=== PATIENT | male | born 1960 | race Caucasian/White ===

== ENCOUNTER → 2021-03-07 08:32 | Outpatient (CLI) | payer OTHER, SELFPAY ==
[2019-08-16 11:37] VITALS: BMI 24.3
[2021-03-07 10:00] LABS: Absolute Lymphocyte Count 1.63 X10^3/uL (0.83-4.51); Absolute Neutrophil Count 2.9 X10^3/uL (2.0-7.7); Basophil# 0.04 X10^3/uL; Basophil% 0.8 % (0-1); Eosinophil# 0.21 X10^3/uL; Hemoglobin 14.7 g/dL (13.0-16.5); Lymphocyte # 1.63 X10^3/ul (0.83-4.51); Lymphocyte % 30.8 % (19-41); Mean Corp Hgb Conc 33.4 g/dL (32-36); Mean Corpuscular Hgb 29.3 pg (27.0-32.0); Mean Corpuscular Volume 87.8 fL (80-94); Monocyte# 0.49 X10^3/uL; Monocyte% 9.3 % (0-10); NRBC Flagged by Analyzer 0 % (0-5); Neutrophil # 2.91 X10^3/uL (2.7-7.7); Neutrophil % 54.9 % (47-70); Platelet Count 251 K/mm3 (150-450); RBC Distribution Width CV 12.4 % (11.6-14.6); RBC Distribution Width SD 39.8 fl (35.1-43.9); Red Blood Count 5.01 M/mm3 (4.6-6.2); White Blood Count 5.3 K/mm3 (4.4-11.0)
[2021-03-07 10:33] LABS: Vitamin D,25 Hydroxy 31.2 ng/mL
[2021-03-07 10:46] LABS: Anion Gap 4 (5-15); BUN 25 mg/dL (7-18); BUN/Creat Ratio 27.4 RATIO (10-20); Calcium,Total 9.5 mg/dL (8.5-10.1); Chloride 107 mmol/L (98-107); Cholesterol 172 mg/dL (200); Creatinine, Serum 0.91 mg/dL (0.70-1.30); EST Glomerular Filtration Rate 89 mL/min (>60); Est Glom Filt Rate - Afr Amer 108 mL/min (>60); Glucose 105 mg/dL (74-106); High Density Lipoprotein 52 mg/dL; PSA,Total - Annual Screen 1.15 ng/mL (0.00-4.00); Potassium 4.2 mmol/L (3.5-5.1); Sodium Level 139 mmol/L (136-145); Triglycerides 80 mg/dL; Very Low Density Lipoprotein 16 mg/dL (5-40)
== END ==
PROVIDERS: PCP Family Medicine; Referring Provider Family Medicine; Visit Provider Family Medicine
DX: Z00.00 Encounter for general adult medical examination without abnormal findings (principal); R20.2 Paresthesia of skin
CPT/HCPCS: 36415; 80048; 80061; 82306; 84153; 84403; 84443; 85025; G0103

== ENCOUNTER 2021-04-17 07:30 | Day surgery (SDC) | payer OTHER, SELFPAY ==
[2019-08-16 11:37] VITALS: BMI 24.3
[2021-04-17] VITALS (7 sets, daily range): BP systolic 103–133; BP diastolic 72–95; PULSE 69–89; RESP 12–16; TEMP 36–36.6; O2SAT 95–97; BMI 23.7
[2021-04-17] MEDS: Lactated Ringers 1,000 ML 100 ML IV (07:50)
--- NOTE | 2021-04-17 08:10 | HP.PCM_ITS ---
HPI - General HPI Narrative NATALIE PARHAM, is a 60 M who presents for screening colonoscopy. The patient has no abdominal pain. He is never had a colonoscopy in the past. He denies any blood in his stool or family history of colon cancer. PFSH Medical History Hair transplant History of stress test Non-smoker Home Medications NK 04/12/21 [History Last Taken Unknown] Allergy/AdvReac Type Severity Reaction Status Date / Time No Known Allergies Allergy Unverified 04/17/21 08:01 Social History (Updated 08/16/19 @ 11:37 by Da RAHMAN, PA) Smoking Status: Never smoker alcohol intake: never Past Medical/Surgical History Planned Operation Planned Operative Procedure/s: cscope open access Previous Hospitalizations/Surgeries HX Hospitalizations: No Any Problems With Anesthesia: No You/Your Family Experience Fever (Hyperthermia) With Anes: No Cholinesterase deficiency: No Cardiovascular Hx Hypertension: No Respiratory Hx Sleep Apnea: No Hx Respiratory Tract Infection/Cold (presently): No Do You Snore Loudly (louder than talking or can be heard): No Do You Often Feel Tired/ Fatigued/ Sleepy Dring Daytime?: No Has Anyone Observed You Stop Breathing During Sleep?: No Result (for STOP score): Negative Smoking Status: Never smoker Neurological Does patient have nerve stimulator: No Reproduction : No Miscellaneous Recent Exposure to Contagious Disease: No Allergies No Known Allergies Allergy (Unverified 04/17/21 08:01) Discharge Is Pt Admitted From a Longterm, or a [place] [facility]: No After D/C, Where Do you Plan to Go: Return Home Vital Signs Vital Signs Vital Signs: 04/17/21 08:02 Temperature 97.9 F Temperature Source Temporal Pulse Rate 89 Respiratory Rate 16 Respiratory Pattern Normal Blood Pressure 133/95 H Blood Pressure Mean 107 Blood Pressure Source Monitor Blood Pressure Position Semi-Fowlers Blood Pressure Location Right Arm Pulse Ox 95 Oxygen Delivery Method Room Air Weight Weight: 151 lb 10.848 oz Body Mass Index (BMI) 23.7 Physical Exam Const alert and oriented x3 Resp normal respiratory effort and normal air movement Cardio regular rate and regular rhythm GI soft to palpation, non-tender and non-distended Assessment & Plan Assessment/Plan (1) Screen for colon cancer: PLAN: Patient here for screening colonoscopy. He has no history of colonoscopy in the past. I explained endoscopy in detail to the patient. I explained the risks including but not limited to stroke or heart attack with anesthesia, perforation of the GI tract, bleeding, infection. I explained that any of these could necessitate further emergency surgery. The patient understands and all questions were answered sufficiently. The patient wishes to proceed with procedure. Michael Dumont MD Pager: [facility] [address] [place] [address] [address] [place] [address] Office: Surgery Risks - Colonoscopy Risks Include but are not Limited To: Risks include but are not limited to: Bleeding, perforation requiring further surgery, inability to complete colonoscopy requiring barium enema.
--- NOTE | 2021-04-17 08:45 | OP.COLON_ITS ---
Patient Name: Vito Moses Procedure Date: 04/17/2021 8:17 AM Date of : 1960 Age: 60 Procedure: Colonoscopy Indications: Screening for colorectal malignant neoplasm Providers: Michael Dumont MD Medicines: Monitored Anesthesia Care Patient Profile: This is a 60 year old male. Refer to note in patient chart for documentation of history and physical. Last Colonoscopy: none. The patient's first colonoscopy is today. Complications: No immediate complications. Procedure: Pre-Anesthesia Assessment: - Prior to the procedure, a History and Physical was performed, and patient medications and allergies were reviewed. The patient's tolerance of previous anesthesia was also reviewed. The risks and benefits of the procedure and the sedation options and risks were discussed with the patient. All questions were answered, and informed consent was obtained. Prior Anticoagulants: The patient has taken no previous anticoagulant or antiplatelet agents. After reviewing the risks and benefits, the patient was deemed in satisfactory condition to undergo the procedure. After I obtained informed consent, the scope was passed under direct vision. Throughout the procedure, the patient's blood pressure, pulse, and oxygen saturations were monitored continuously. The pediatric colonoscope was introduced through the anus and advanced to the cecum, identified by appendiceal orifice and ileocecal valve. The colonoscopy was performed without difficulty. The patient tolerated the procedure well. The quality of the bowel preparation was good. Scope In: 8:24:29 AM Scope Withdrawal Time 0 hours 6 minutes 0 seconds Scope Out: 8:39:22 AM Total Procedure Duration Time 0 hours 14 minutes 53 seconds Findings: The entire examined colon appeared normal on direct and retroflexion views. Impression: - The entire examined colon is normal on direct and retroflexion views. - No specimens collected. Recommendation: - Discharge patient to home. - Resume previous diet. - Continue present medications. - Repeat colonoscopy in 10 years for screening purposes. Procedure Code(s): --- Professional --- 79290, Colonoscopy, flexible; diagnostic, including collection of specimen(s) by brushing or washing, when performed (separate procedure) Diagnosis Code(s): --- Professional --- Z12.11, Encounter for screening for malignant neoplasm of colon CPT copyright 2017 [employer]. All rights reserved. The codes documented in this report are preliminary and upon manager distribution review may be revised to meet current compliance requirements. Michael Dumont MD 04/17/2021 8:45:37 AM This report has been signed electronically. Number of Addenda: 0 Note Initiated On: 04/17/2021 8:17 AM
--- NOTE | 2021-04-17 08:47 | OP.CCLET_ITS ---
04/17/2021 Luis Yanez MD [address] [id number] Re : Colonoscopy procedure for Vito Moses Dear Dr. Yanez This procedure was performed on Saturday, April 17, 2021. My impressions and recommendations are as follows: Impressions : - The entire examined colon is normal on direct and retroflexion views. - No specimens collected. Recommendations : - Discharge patient to home. - Resume previous diet. - Continue present medications. - Repeat colonoscopy in 10 years for screening purposes. My findings are described in the full procedure note, which is enclosed. If I can be of further assistance, please feel free to contact me at Doctor phone number(s): , Work: . Sincerely, Michael Dumont MD 04/17/2021 8:45:37 AM This report has been signed electronically.
== END 2021-04-17 09:21 ==
LOC: EN 07:38 → AC 07:39
PROVIDERS: PCP Family Medicine; Referring Provider Family Medicine; Visit Provider Surgery
PROC: 0DJD8ZZ Inspection of Lower Intestinal Tract, Via Natural or Artificial Opening Endoscopic (ICD-10-PCS; CPT 45378; principal; 2021-04-17 08:25)
DX: Z12.11 Encounter for screening for malignant neoplasm of colon (principal)
CPT/HCPCS: 45378; J7120; J2405

== ENCOUNTER 2023-01-27 10:51 | Day surgery (SDC) | payer OTHER, SELFPAY ==
[2023-01-27] VITALS (8 sets, daily range): BP systolic 107–130; BP diastolic 61–92; PULSE 68–85; RESP 16; TEMP 36.3–36.9; O2SAT 92–99; BMI 25.2
[2023-01-27] MEDS: Lactated Ringers 1,000 ML 15 ML IV ×2 (11:33→15:31)
[2023-01-27] MEDS: Cefazolin 2 GM in 0.9% Normal Saline 100 ML IV (13:09)
[2023-01-27] MEDS: Cefazolin 1 GM/50 ML BAG IV (14:17)
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
== END 2023-01-27 16:57 | disposition home or self-care (01) ==
LOC: SDC 10:53 → AC 10:54
PROVIDERS: PCP Family Medicine; Referring Provider Orthopaedic Surgery; Visit Provider Orthopaedic Surgery
PROC: (CPT 27650; principal; 2023-01-27 12:50)
DX: S86.012A Strain of left Achilles tendon, initial encounter (principal); S90.02XA Contusion of left ankle, initial encounter; V28.29XA Unspecified rider of other motorcycle injured in noncollision transport accident in nontraffic accident, initial encounter; Y93.55 Activity, bike riding; Y99.8 Other external cause status; Y92.828 Other wilderness area as the place of occurrence of the external cause; M76.62 Achilles tendinitis, left leg; Z86.16 Personal history of COVID-19
CPT/HCPCS: 27650; 01472; 64445; J7120; A4216; J2405

== ENCOUNTER 2023-03-30 04:00 | Emergency (ER) | payer OTHER, SELFPAY ==
[2023-03-30 04:01] VITALS: BP 161/104; PULSE 115; RESP 23; TEMP 36.8; O2SAT 98; BMI 23.3
--- NOTE | 2023-03-30 04:19 | EDS_ITS ---
HPI History of Present Illness Chief Complaint: Allergic Reaction Informant: patient Narrative Narrative: Patient states that he has had itching of his hands and feet. He has some hives on the abdomen. He feels that his tongue is a little bit full. He is not alvarez ving trouble breathing. He did go out to dinner tonight. He also had taken some Advil as he had had some dental work recently and his tooth was just mildly sore. He does not know if he has ever had Advil before. He has not taken anything yet for the reaction. He does not have high blood pressure and is not on an SUDARSHAN inhibitor. [facility] Medical History Alcohol use Arthritis Cardiology follow-up encounter Hair transplant History of edema History of stress test Non-smoker Wears glasses Home Medications famotidine 20 mg tablet (Pepcid) 20 mg PO BID #10 tabs 03/30/23 [Rx Last Taken Unknown] prednisone 20 mg tablet 60 mg PO DAILY #15 TABLETS 03/30/23 [Rx Last Taken Unknown] Allergy/AdvReac Type Severity Reaction Status Date / Time No Known Allergies Allergy Verified 03/30/23 04:03 Surgical History Hx of colonoscopy Social History Smoking Status: Never smoker alcohol intake: never ROS ROS ED Constitutional Constitutional ED: Denies chills, fever(s) or sweats Eyes Eyes: Denies change in vision ENT ENT ED: Reports other Details: See history of present illness. No trouble swallowing or handling secretions. ; Denies ear pain, rhinorrhea or sore throat Cardiovascular Cardiovascular: Denies chest pain or palpitations Respiratory/Chest Respiratory/Chest: Denies cough or dyspnea Gastrointestinal Gastrointestinal: Denies diarrhea, nausea or vomiting Musculoskeletal Musculoskeletal: Denies arthralgias or myalgias Integumentary Reports rash Neurologic Neurologic: Denies headache(s) Psychiatric Psychiatric: Denies anxiety Endocrine Endocrinology: Denies polydipsia or polyuria Hematologic/Lymphatic Hematologic/Lymphatic: Denies easy bleeding, easy bruising or lymphadenopathy Allergic/Immunologic Allergic/Immunologic ED: Reports tongue swelling and urticaria; Denies mouth swelling EXAM Physical Exam Narrative Exam Narrative: CONSTITUTIONAL: Patient is nontoxic in appearance. The patient looks comfortable. Work of breathing looks normal. HEENT: No notable trauma. Mucous membranes moist. He he does have just some some mild fullness of his tongue. No obvious signs of angioedema though. His voice and secretion handling is normal. I see no dental abscess. No sinus tenderness. No indication of pain with swallowing. EYES: No conjunctival injection. No proptosis. NECK:No JVD. No stridor is heard. CARDIOVASCULAR: Regular rate. Regular rhythm. No notable murmur. No JVD. RESPIRATORY: No respiratory distress. Breathing is unlabored. No wheezes. No rhonchi. No rales. No pain with a deep breath. No chest wall tenderness. GASTROINTESTINAL: Not distended. Bowel sounds are normal. No tenderness. No guarding. No rebound. No palpable mass. No bruit is heard. He does have some hives on the lower abdomen more on the right. GENITOURINARY: No tenderness over the bladder. No CVA tenderness. MUSCULOSKELETAL: Atraumatic. No peripheral edema. No cord. No tenderness along the deep venous system. No asymmetry. No distended veins. NEUROLOGICAL: Patient is alert and appropriate. No focal deficit noted. SKIN: Patient does have some hives on his lower abdomen. None on the palms. He states he had some redness of the hands and palms before but that seems to be actually improved. PSYCHIATRIC: Patient is calm. Mood is appropriate. Const Vital Signs: 03/30/23 04:01 03/30/23 05:00 Temperature 98.3 F Temperature Source Oral Pulse Rate 115 H 98 Respiratory Rate 23 H 19 H Blood Pressure 161/104 H 152/90 H Blood Pressure Mean 123 110 Pulse Ox 98 98 Oxygen Delivery Method Room Air [facility] Narrative Medical decision making narrative: 05:00 patient is rechecked. The hives are gone. There is no itching in his hands or feet. He feels as though the tongue is improved. He can still sense a little bit of swelling. But it is much better. Patient will be rechecked again. As long as he continues to improve I think we can get him home on medications. We did discuss reasons to return. He should avoid Motrin or Aleve at this time as it could have been this medicine that prompted the occurrence and reaction. 05:40 patient is doing progressively better. Tongue looks and feels better. He is comfortable and would like to go home at this time. We will get him on Pepcid and prednisone for the next approximately 5 days. He is encouraged to take Claritin also. He certainly can substitute Benadryl but needs to take that more frequently and it is more likely sedating. We discussed that if he has any worsening or swelling of the tongue was trouble breathing he needs to return. He should not take Advil as this seems to be the most likely compound to initiate this. He does not think he has ever had it before. Discharge Plan Triage Chief Complaint: Allergic Reaction ED Provider: Marino Farias Dx/Rx/DC Orders Clinical Impression: Allergy to nonsteroidal anti-inflammatory drug (NSAID), Hives, Mild tongue swelling Instructions: ED ADVERSE DRUG REACTION Allergic, ED Hives (Adult) Prescriptions: New prednisone 20 mg tablet 60 mg PO DAILY Qty: 15 0RF famotidine [Pepcid] 20 mg tablet 20 mg PO BID Qty: 10 0RF Primary Care Provider: Luis Yanez Referrals: Luis Yanez MD [Primary Care Provider] - 3-5 Days if not improving Activity Restrictions/Additional Instructions: Take 1 Claritin daily for the next 5 days. Disposition Disposition: Home, Self Care
[2023-03-30] MEDS: 0.9% Normal Saline 1,000 ML 999 ML IV (04:32)
[2023-03-30] MEDS: Famotidine 200 MG/20 ML MDV 20 MG in 0.9% Normal Saline (Pres. free 8 ML 300 MG IV (04:33)
[2023-03-30] MEDS: DiphenhydrAMINE 50 MG/ML Syringe IV (04:33)
[2023-03-30] MEDS: MethylPREDNISolone 125 MG/2 ML Vial IV (04:33)
[2023-03-30 05:00] VITALS: BP 152/90; PULSE 98; RESP 19; O2SAT 98
[2023-03-30 05:48] VITALS: BP 150/90; PULSE 89; RESP 18; O2SAT 99
== END 2023-03-30 05:49 | disposition home or self-care (01) ==
PROVIDERS: Emergency Provider Emergency Medicine; PCP Family Medicine; Visit Provider Emergency Medicine
DX: R21 Rash and other nonspecific skin eruption (principal); T39.395A Adverse effect of other nonsteroidal anti-inflammatory drugs [NSAID], initial encounter
CPT/HCPCS: 96374; 96375; 99284; J7030; J3490

== ENCOUNTER → 2023-09-03 | Outpatient (CLI) | payer MEDICARE, OTHER, SELFPAY ==
--- NOTE | 2023-09-03 07:50 | CT_ITS ---
STUDY: CT MAXILLOFACIAL SINUSES REASON FOR EXAM: Male, 63 years old. CHRONIC SINUSITIS RADIATION DOSAGE (If Supplied By Facility): CTDIvol = ( 33.06 ) mGy, DLP = ( 788.40 ) mGycm TECHNIQUE: The patient was scanned in a multi detector CT scanner. High resolution axial imaging was performed without the administration of intravenous contrast material. Sagittal and coronal images were reconstructed. Individualized dose optimization techniques were used for this CT. COMPARISON: None. FINDINGS: FRONTAL SINUSES: Normal aeration, without mucosal inflammatory disease. ETHMOIDAL SINUSES: Normal aeration, without mucosal inflammatory disease. MAXILLARY SINUSES: Left maxillary sinus is opacified with fluid density. The ostiomeatal unit appears opacified as well. SPHENOIDAL SINUSES: Normal aeration, without mucosal inflammatory disease. There is patency of the bilateral maxillary infundibuli with normal uncinate processes, ethmoid bullae, and hiatus semilunaris. Normal bilateral middle turbinates. Normal bilateral inferior turbinates. Normal midline nasal septum. There is patency of the bilateral nasal airways. The visualized osseous structures are normal. The visualized bilateral orbital contents are normal. CT/Sinus/Facial Bone IMPRESSION: Left maxillary sinusitis with involvement of the ostiomeatal unit Electronically Signed: Moustapha Jose MD at 20:33 EST ,
== END | disposition home or self-care (01) ==
LOC: CT 07:47
PROVIDERS: PCP Family Medicine; Referring Provider Otolaryngology Otolaryngology/Facial Plastic Surgery; Visit Provider Otolaryngology Otolaryngology/Facial Plastic Surgery
DX: J32.8 Other chronic sinusitis (principal)
CPT/HCPCS: 70486

== ENCOUNTER → 2023-09-24 | Outpatient (CLI) | payer MEDICARE, OTHER, SELFPAY | END | disposition home or self-care (01) | LOC: LABSPEC 15:55 | PROVIDERS: PCP Family Medicine; Referring Provider Otolaryngology; Visit Provider Otolaryngology | DX: J32.9 Chronic sinusitis, unspecified (principal) | CPT/HCPCS: 87070; 87186; 87205 ==

== ENCOUNTER → 2023-10-22 | Outpatient (CLI) | payer MEDICARE, OTHER, SELFPAY ==
--- NOTE | 2023-10-22 06:54 | EKG12_ITS ---
Test Reason : PRE OP Blood Pressure : / mmHG Vent. Rate : 076 BPM Atrial Rate : 076 BPM P-R Int : 140 ms QRS Dur : 070 ms QT Int : 380 ms P-R-T Axes : 070 028 039 degrees QTc Int : 427 ms Normal sinus rhythm Normal ECG Confirmed by ELLA LONG, DEEPAK ([id number]), index editor LEVI BRITT ([id number]) on 10/22/2023 2:15:12 PM Referred By: Moustapha Gilmore Confirmed By:DEEPAK JARAMILLO MD
--- OUTSIDE RECORDS SUMMARY | 2023-10-22 06:57 | XMS RPT_ITS | CCD ---
Author Name Unknown Address [facility] [address] [place] [id number] Organization [facility] Care Team Providers Care Blanchard Grinder Operator Name Role Phone SOLOMON DODD (JOSIAH) Unavailable Unavailable PHYSICIAN, PATIENT UNSURE Primary Care Polly CHRISTINA MD, DR RODRIGUEZ Attending [facility] Allergies Allergy Classification Reported Allergen(s) Allergy Type Date of Onset Reaction(s) Facility (1 source) Seasonal allergy; Translations: [SEASONAL ALLERGIES] Propensity to adverse reactions (disorder) 2 AOF [facility] Repository Problems Problem Classification Problem Date Documented Da te Episodic/Chronic Other lower respiratory disease (1 source) Cough; Translations: [Cough] Onset: 08-10-2018 Episodic Results Test Name Value Interpretation Reference Range Facil ity Encounters Encounter Date Encounter Type Care Provider Facility Start: 01-19-2023 End: 01-19-2023 Emergency department patient visit PATIENT UNSURE PHYSICIAN Facility:B Start: 08-10-2018 End: 08-11-2018 Patient encounter procedure [place]) [facility] Payers Date Payer Category Payer Unknown [id number] 1960 Unknown [id number] Summary Purpose Family History No Family History Records FoundNo Family History Records Found Advance Directives No Advanced Directives Records FoundNo Advanced Directives Records Found Additional Source Comments (unrecognized sect ion and content) No Status Records FoundNo Status Records Found INFORMATION SOURCE (unrecogn ized section and content) DATE CREATED AUTHOR AUTHOR'S ABEBE ATALIZE 01/24/2023 [facility] ([place]) FOR RECORDS PERTAINING TO PATIENTS WHO ARE OR HAVE BEEN ENROLLED IN A CHEMICAL DEPENDENCY/SUBSTANCEABUSE PROGRAM, SOME INFORMATION MAY BE OMITTED. This clinical summary was aggregated from multiple sources. Caution should be exercised in using it in the provision of clinical care. This summary normalizes information from multiple sources, and as a consequence, information in this document may materially change the coding, format and clinical context of patient data. In addition, data may be omitted in some cases. CLINICAL DECISIONS SHOULD BE BASED ON THE PRIMARY CLINICAL RECORDS. [facility] [employer] [facility]. provides no warranty or guarantee of the accuracy or completeness of information in this document.
[2023-10-22 08:09] LABS: Hemoglobin 14.1 g/dL (13.0-16.5); Mean Corp Hgb Conc 32.8 g/dL (32-36); Mean Corpuscular Hgb 28.9 pg (27.0-32.0); Mean Corpuscular Volume 88.1 fL (80-94); Mean Platelet Vol. 8.9 fl (6.2-12.0); Platelet Count 230 K/mm3 (150-450); RBC Distribution Width CV 12.4 % (11.6-14.6); RBC Distribution Width SD 40.3 fl (35.1-43.9); Red Blood Count 4.88 M/mm3 (4.6-6.2); White Blood Count 6.4 K/mm3 (4.4-11.0)
[2023-10-22 08:42] LABS: Anion Gap 3 (5-15); BUN 24 mg/dL (7-18); BUN/Creat Ratio 21.2 RATIO (10-20); Calcium,Total 9.3 mg/dL (8.5-10.1); Chloride 109 mmol/L (98-107); Creatinine, Serum 1.13 mg/dL (0.70-1.30); EST Glomerular Filtration Rate 69 mL/min (>60); Est Glom Filt Rate - Afr Amer 84 mL/min (>60); Glucose 101 mg/dL (74-106); Potassium 4.1 mmol/L (3.5-5.1); Sodium Level 139 mmol/L (136-145)
== END | disposition home or self-care (01) ==
LOC: PSN 06:53
PROVIDERS: PCP Family Medicine; Referring Provider Otolaryngology; Visit Provider Otolaryngology
DX: Z01.818 Encounter for other preprocedural examination (principal)
CPT/HCPCS: 36415; 80048; 85027; 93005

== ENCOUNTER → 2023-11-21 | Outpatient (CLI) | payer MEDICARE, OTHER, SELFPAY ==
--- NOTE | 2023-11-20 | ETH_PTH ---
PATHOLOGY RESULTS PATIENT: NATALIE PARHAM LOC: [facility] U#:[id number] AGE/SX: 63/M ROOM: RE11/21/[address]: Dr. Moustapha Gilmore MD : 1960 BED: DIS: 11/21/2023 SPEC #: [id number] RECD: 11/24/23 08:03 STATUS: NATHAN VINNIE #: [id number] NANO: 11/20/23 00:[address]: Moustapha Gilmore DEPT: SURGICAL PATHOLOGY RECD BY: Elio Moran ENTERED: 11/24/23 08:03 SP TYPE: ETH TISS OTHR DR: Dr. Luis Yanez MD [facility] Tissues: Ethmoid sinus, NOS Procedures: Decalcification bone/plaque Surgery Specimen Level III HEADER OPERATION: Left maxillary antrostomy PRE-OP DIAGNOSIS: Chronic maxillary sinusitis TISSUE SUBMITTED: Left sinus contents MICROSCOPIC DIAGNOSIS Left sinus contents, curettings: Chronic sinusitis. Fragments of bone with no pathologic change. AM:madhav 11/27/2023 MICROSCOPIC DESCRIPTION Slides are reviewed. GROSS DESCRIPTION Received in fixative is one container labeled with the patient's name and designated left sinus contents. The specimen consists of multiple pieces of mendoza soft tissue mixed with fragments of bone that in aggregate measure 1.7 x 1.5 x 0.3 cm. The specimen is totally submitted in one cassette after decalcification. / SJ:madhav 11/24/2023 TC:3 CPT: 08830, 70274
== END | disposition home or self-care (01) ==
LOC: LABSPEC 16:14
PROVIDERS: PCP Family Medicine; Referring Provider Otolaryngology; Visit Provider Otolaryngology
DX: J32.0 Chronic maxillary sinusitis (principal)
CPT/HCPCS: 88304; 88305; 88311

== ENCOUNTER → 2024-10-13 | Outpatient (CLI) | payer MEDICARE, OTHER, SELFPAY ==
[2024-10-13 11:04] LABS: Anion Gap 5 (5-15); BUN 20 mg/dL (7-18); BUN/Creat Ratio 23.8 RATIO (10-20); Calcium,Total 9.2 mg/dL (8.5-10.1); Chloride 109 mmol/L (98-107); Cholesterol 157 mg/dL (200); Creatinine, Serum 0.84 mg/dL (0.70-1.30); EST Glomerular Filtration Rate 97 mL/min (>60); Est Glom Filt Rate - Afr Amer 117 mL/min (>60); Glucose 104 mg/dL (74-106); High Density Lipoprotein 48 mg/dL; PSA,Total - Annual Screen 0.84 ng/mL (0.00-4.00); Potassium 3.9 mmol/L (3.5-5.1); Sodium Level 140 mmol/L (136-145); Triglycerides 69 mg/dL; Very Low Density Lipoprotein 14 mg/dL (5-40)
== END | disposition home or self-care (01) ==
LOC: MFPLAB 08:16
PROVIDERS: PCP Family Medicine; Referring Provider Family Medicine; Visit Provider Family Medicine
DX: Z00.00 Encounter for general adult medical examination without abnormal findings (principal); Z12.5 Encounter for screening for malignant neoplasm of prostate
CPT/HCPCS: 36415; 80048; 80061; 84153; G0103